=== PATIENT | male | born 1940 | race Two or more races ===

== ENCOUNTER 2022-07-17 22:48 | Emergency (ER) | payer OTHER ==
[~2022-07-17] VITALS: Ht 182.9 cm; Wt 83.0 kg
[2022-07-18] MEDS ORDERED: IPRATROPIUM BROMIDE (0.02%) 0.5MG/2.5ML NEB HHN STA (00:02)
[2022-07-18] MEDS ORDERED: ALBUTEROL (0.083%) 2.5MG/3ML NEB HHN STA (00:02)
[2022-07-18 00:59] LABS: BASOPHILS % 0.3 % (0.0-2.0); EOSINOPHILS % 1.7 % (0.0-5.0); HEMATOCRIT. 36.4 % (42.0-52.0); HEMOGLOBIN. 11.7 g/dL (14.0-18.0); LYMPHOCYTES % 8.5 % (20.0-50.0); MEAN CORPUSCULAR HEMOGLOBIN 31.2 pg (28.0-32.0); MEAN PLATELET VOLUME 9.4 fl (7.4-10.4); MONOCYTES % 7.8 % (2.0-8.0); NEUTROPHILS % 81.7 % (40.0-76.0); PLATELET 90 x1000/uL (130-400); RED BLOOD CELL COUNT 3.75 mill/uL (4.7-6.1); RED CELL DISTRIBUTION WIDTH 15.2 % (11.6-14.6)
[2022-07-18 01:08] LABS: CHLORIDE 104 mEq/L (98-107)
[2022-07-18] MEDS ORDERED: PIPERACILLIN/TAZ 3.375G PREMIX 50 ML IV NR (02:15)
[2022-07-18] MEDS ORDERED: VANCOMYCIN 1G PREMIX 200 ML IV NR (02:15)
[2022-07-18 04:30] VITALS: BP 140/56
== END 2022-07-18 05:46 | disposition short-term general hospital (02) ==
LOC: ER 22:53
DX: J18.9 Pneumonia, unspecified organism (principal); E87.70 Fluid overload, unspecified; I44.0 Atrioventricular block, first degree; E87.6 Hypokalemia; I12.0 Hypertensive chronic kidney disease with stage 5 chronic kidney disease or end stage renal disease; N18.6 End stage renal disease; Z99.2 Dependence on renal dialysis; Z20.822 Contact with and (suspected) exposure to COVID-19
CPT/HCPCS: 36415; 71045; 80053; 83605; 84484; 85025; 87040; 87426; 87804; 94640; 96365; 96375; 99291; C9803; J2543; J3370